=== PATIENT | female | born 1980 | race Caucasian/White ===

== ENCOUNTER → 2016-12-11 | Outpatient (CLI) | payer OTHER | LOC: FIMAGING 08:41 | PROVIDERS: ATTEND Obstetrics & Gynecology | DX: O09.812 Supervision of pregnancy resulting from assisted reproductive technology, second trimester (principal); Z3A.21 21 weeks gestation of pregnancy ==

== ENCOUNTER → 2017-01-06 | Outpatient (CLI) | payer OTHER | LOC: FIMAGING 10:39 | PROVIDERS: ATTEND Obstetrics & Gynecology | DX: O09.512 Supervision of elderly primigravida, second trimester (principal); O09.812 Supervision of pregnancy resulting from assisted reproductive technology, second trimester; Z3A.24 24 weeks gestation of pregnancy; Z82.49 Family history of ischemic heart disease and other diseases of the circulatory system ==

== ENCOUNTER → 2017-03-09 | Outpatient (CLI) | payer OTHER | LOC: FIMAGING 12:23 | PROVIDERS: ATTEND Obstetrics & Gynecology | DX: O09.513 Supervision of elderly primigravida, third trimester (principal); O09.813 Supervision of pregnancy resulting from assisted reproductive technology, third trimester; Z82.49 Family history of ischemic heart disease and other diseases of the circulatory system; Z3A.33 33 weeks gestation of pregnancy ==

== ENCOUNTER 2017-04-28 06:00 | Inpatient (IN) | payer OTHER ==
[2017-04-28] MEDS ORDERED: EPSOM SALT 454 GM TP PRN (07:17)
[2017-04-28] MEDS ORDERED: OXYTOCIN/RINGERS LACTATE 1,000 ML IV PRN (07:17)
[2017-04-28] MEDS ORDERED: OLIVE OIL 118 ML BTL MISC PRN (07:17)
[2017-04-28] MEDS ORDERED: TERBUTALINE SULFATE 1 MG/ML VIAL IV PRN (07:17)
[2017-04-28] MEDS ORDERED: LR 1,000 ML IV PRN (07:17)
[2017-04-28 08:19] LABS: % IMMATURE GRANULYOCYTES 0.6 % (0.0-1.1); ABSOLUTE IMMATURE GRANULOCYTES 0.04 10^3/uL (0.00-0.10); ADD DIFF? NO; ADD MORPH? NO; ADD SCAN? NO; ATYPICAL LYMPHOCYTE FLAG 10 (0-99); FRAGMENT RBC FLAG 0 (0-99); HEMATOCRIT 36.1 % (38.0-47.0); HEMOGLOBIN 13.2 g/dL (12.6-16.3); LEFT SHIFT FLG 0 (0-99); LIPEMIA HEMOLYSIS FLAG 90 (0-99); MEAN CELL HEMOGLOBIN 35.2 pg (27.9-34.1); MEAN CELL HEMOGLOBIN CONCENTR. 36.6 g/dL (32.4-36.7); MEAN CELL VOLUME 96.3 fL (81.5-99.8); MEAN PLATELET VOLUME 10.3 fL (8.7-11.7); PLATELET CLUMPS FLAG 0 (0-99); PLATELET COUNT 156 10^3/uL (150-400); RED BLOOD CELL COUNT 3.75 10^6/uL (4.18-5.33); RED CELL DISTRIBUTION WIDTH 12.5 % (11.5-15.2)
[2017-04-28] MEDS ORDERED: LR 500 ML IV PRN (08:20)
[2017-04-28] MEDS ORDERED: OXYTOCIN/LR *STANDARD DOSE PROTOCOL IV SCH (08:30)
[2017-04-28] MEDS ORDERED: LIDOCAINE 1% 2 ML INJ ONE (08:47)
[2017-04-28] MEDS ORDERED: LIDOCAINE 1% 2 ML INJ ID ONE (09:00)
--- NOTE | 2017-04-28 11:22 | GHP ---
[f rep st] HISTORY AND PHYSICAL DATE OF ADMISSION: 04/28/2017 ADMISSION DIAGNOSIS: Intrauterine at 40 and 5/7 weeks' gestation, here for induction of l abor for postdates. INDICATIONS: Patient is a 36-year-old 2, para 0-0-1-0, who is 40 and 5/7 weeks' gestation, who presents for induction of labor. Patient initially received care at [facility], but then transferred to our practice at 34 weeks' gestation. 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 Patient has a known history of genital HSV. She has be en treated starting at 36 weeks with Valtrex and is not having any prodromal symptoms. The patient' s overall has been uncomplicated with exception of conceiving by IVF. However, her 67-yea r-old mother suddenly earlier this year due to aortic dissection. Patient has been working wit h grief counselors regarding that. She also had an extensive workup with the shell mold bonding machine operator regarding the family history of aortic dissection. MEDICAL HISTORY: Significant for genital HSV, history of ocular migraines, history of depression. She was on medication, Celexa, but discontinued that 5 years ago. Gluten sensitivity. History of s inus cyst. MEDICATIONS: vitamins, iron, and Valtrex. SURGICAL HISTORY: Removal of sinus cyst, varicose veins, procedures related to egg retrieval and IV F. ALLERGIES: No known drug allergies. SOCIAL HISTORY: Patient is . 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 She denies tobacco, alcohol, or dr ug use. FAMILY MEDICAL HISTORY: Her mother of aortic artery dissection in October of this year. The pat ient has had a negative cardiac and major blood vessel workup. Remainder of medical history is nonc ontributory. 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 Periods every 28 days, lasting 5-7 days. She is a 2, para 0-0-1-0. In 11/2014, she had a chemical . Current was conceived by IVF. S he had transfer of a day-5 embryo. She had a negative echocardiogram in this . The has overall been uncomplicated. The patient does have a history of low risk HPV but no hi story of abnormal Pap. She does have a history of genital herpes and HPV. REVIEW OF SYSTEMS: A 10-point review of systems is negative with the above-mentioned pertinent posi tives noted. She denies any headache, changes in vision, nausea, vomiting. There is good mov ement. Denies any loss of fluid or vaginal bleeding. PHYSICAL EXAM: VITAL SIGNS: Stable. GENERAL APPEARANCE: Alert and oriented x3. PSYCH: She has appropriate affect. NECK: Mobile and supple. HEART: Rate is regular, regular. LUNGS: Clear to auscultation bilaterally. ABDOMEN: Gravid, nondistended, nontender. EXTREMITIES: No calf tendern ess or edema. PELVIC: On her last cervical exam, she was 3 cm dilated, 100% effaced, -2 station. There are no signs of HSV lesions. heart tracing is category 1, and she is having occasional contractions. LABS: Blood type B positive, antibody screen negative. Rubella immune. GBS negative. HB sAg negative. HIV negative. Her 50 g glucose was 101. She had a negative Verifi screen. ASSESSMENT AND PLAN: A 36-year-old 2, para 0-0-1-0 who is 40 and 5/7 weeks' gestation, here for induction of labor for postdates. She has been started on Pitocin. She is requesting epidural when she becomes more active, and she will be managed expectantly. /[id number]/MODL
[2017-04-28] MEDS ORDERED: fentaNYL 2MCG/ML/BUP 0.1% RTU 100 ML BAG EP ONE (13:18)
[2017-04-28] MEDS ORDERED: BUPIVACAINE 0.25% 30 ML SDV ONE (13:19)
[2017-04-28] MEDS ORDERED: PHENYLEPHRINE HCL 100 MCG/ML SYR ONE (13:19)
[2017-04-28] MEDS ORDERED: PHENYLEPHRINE HCL 100 MCG/ML SYR IVP PRN (13:45)
[2017-04-28] MEDS ORDERED: NALOXONE HCL 0.4 MG/ML INJ IVP PRN (13:45)
[2017-04-28] MEDS ORDERED: METOCLOPRAMIDE 10 MG/2 ML VIAL IVP PRN (13:45)
[2017-04-28] MEDS ORDERED: ONDANSETRON 4 MG/2 ML VIAL IVP PRN (13:45)
[2017-04-28] MEDS ORDERED: fentaNYL 2MCG/ML/BUP 0.1% RTU 100 ML EP SCH (14:00)
[2017-04-28] MEDS ORDERED: LR 500 ML IV SCH (14:00)
--- NOTE | 2017-04-28 14:03 | OBPROG ---
Labor Progress Note Assessment/Plan: Assessment: Plan: - . Subjective/Intrapartum Course: 04/28/17 14:01 patient comfortable with epidural. pitocin is at 12. AROM - moderate amount of blood tinged clear fluid. status is reassuring. 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 negative genetic testing. negative echocardiogram. initial care with [facility] [place]. transferred to [facility] at 36 weeks. - Physical Exam General Appearance: WD/WN, alert, no apparent distress Respiratory: chest non-tender, lungs clear, normal breath sounds Cardiac/Chest: normal peripheral pulses, regular rate, rhythm Abdomen: normal bowel sounds, hypoactive bowel sounds, other (fundus firm ) Extremities: normal range of motion, non-tender, normal inspection, normal capillary refill Skin: normal color, warm/dry Neuro/Psych: no motor/sensory deficits, alert, normal mood/affect, oriented x 3 Oxytocin Orders Assessment - Pre-Induction/Augmentation Assessment Gestational Age: 40 week(s) and 5 day(s) ICD10 Worksheet Patient Problems: Problems Problem Status Onset First stage of labor Acute
[2017-04-28] MEDS ORDERED: OLIVE OIL 118 ML BTL ONE (14:26)
[2017-04-28] MEDS ORDERED: LIDOCAINE 1% 300 MG/30 ML SDV ONE ×2 (14:26→23:11)
[2017-04-28] MEDS ORDERED: AMMONIA AROMATIC 1 EACH AMP IH ONE (14:27)
[2017-04-28] MEDS ORDERED: MISOPROSTOL 200 MCG TAB ONE (14:27)
[2017-04-28] MEDS ORDERED: OXYTOCIN 10 UNIT/ML VIAL ONE ×2 (14:27→23:12)
[2017-04-28] MEDS ORDERED: TERBUTALINE SULFATE 1 MG/ML VIAL ONE (14:27)
[2017-04-28] MEDS ORDERED: OXYTOCIN 20 UNIT in LR 1,000 ML IV SCH (14:30)
--- NOTE | 2017-04-28 17:14 | OBPROG ---
Labor Progress Note Assessment/Plan: Assessment: 36 yo at 40 4/7 weeks arom- iupc for minimal cervical change Plan: monitor mvu and increase pitocin to max 24 04/28/17 17:12 - . Subjective/Intrapartum Course: 04/28/17 14:01 patient comfortable with epidural. pitocin is at 12. AROM - moderate amount of blood tinged clear fluid. status is reassuring. 04/28/17 17:13 patient is doing well. pitocin is at 18 mu. sve 4/80/-2. IUPC placed. contractions are not adequate yet. will increase pitocin to max 24. status reassuring. 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 negative genetic testing. negative echocardiogram. initial care with [facility] [place]. transferred to [facility] at 36 weeks. Oxytocin Orders Assessment - Pre-Induction/Augmentation Assessment Gestational Age: 40 week(s) and 5 day(s) ICD10 Worksheet Patient Problems: Problems Problem Status Onset First stage of labor Acute
[2017-04-28] MEDS: CALCIUM CARBONATE 500 MG CHEWABLE TAB PO PRN (17:45)
--- NOTE | 2017-04-28 19:04 | OBPROG ---
Labor Progress Note Assessment/Plan: Assessment: 36 yo at 40 4/7 weeks arom- iupc for minimal cervical change Plan: monitor mvu and increase pitocin to max 24 04/28/17 17:12 - . Subjective/Intrapartum Course: 04/28/17 14:01 patient comfortable with epidural. pitocin is at 12. AROM - moderate amount of blood tinged clear fluid. status is reassuring. 04/28/17 17:13 patient is doing well. pitocin is at 18 mu. sve 4/80/-2. IUPC placed. contractions are not adequate yet. will increase pitocin to max 24. status reassuring. 04/28/17 19:03 patient comfortable. pitocin is at 20 mu. sve 5/80/-2. 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 negative genetic testing. negative echocardiogram. initial care with [facility]. transferred to [facility] at 36 weeks. Oxytocin Orders Assessment - Pre-Induction/Augmentation Assessment Gestational Age: 40 week(s) and 5 day(s) ICD10 Worksheet Patient Problems: Problems Problem Status Onset First stage of labor Acute
--- NOTE | 2017-04-28 21:13 | OBPROG ---
Labor Progress Note Assessment/Plan: Assessment: 36 yo at 40 4/7 weeks arom- iupc for minimal cervical change Plan: monitor mvu and increase pitocin to max 24 04/28/17 17:12 - . Subjective/Intrapartum Course: 04/28/17 14:01 patient comfortable with epidural. pitocin is at 12. AROM - moderate amount of blood tinged clear fluid. status is reassuring. 04/28/17 17:13 patient is doing well. pitocin is at 18 mu. sve 4/80/-2. IUPC placed. contractions are not adequate yet. will increase pitocin to max 24. status reassuring. 04/28/17 19:03 patient comfortable. pitocin is at 20 mu. sve 5/80/-2. contractions were adequate but are not currently so will increase pitocin 04/28/17 21:11 patient feeling much more rectal pressure. SVE - complete/0. pitocin at 20 mu. began pushing. 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 negative genetic testing. negative echocardiogram. initial care with [facility] [place]. transferred to [facility] at 36 weeks. Oxytocin Orders Assessment - Pre-Induction/Augmentation Assessment Gestational Age: 40 week(s) and 5 day(s) ICD10 Worksheet Patient Problems: Problems Problem Status Onset First stage of labor Acute
--- NOTE | 2017-04-28 22:19 | OBPROG ---
Labor Progress Note Assessment/Plan: Assessment: 36 yo at 40 4/7 weeks arom- iupc complete and pushing Plan: pushing 04/28/17 22:17 - . Subjective/Intrapartum Course: 04/28/17 14:01 patient comfortable with epidural. pitocin is at 12. AROM - moderate amount of blood tinged clear fluid. status is reassuring. 04/28/17 17:13 patient is doing well. pitocin is at 18 mu. sve 4/80/-2. IUPC placed. contractions are not adequate yet. will increase pitocin to max 24. status reassuring. 04/28/17 22:18 patient has been pushing in multiple position. not moving the baby much. overall status is reassuring. having variable with pushing but moderate variability in between. 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 negative genetic testing. negative echocardiogram. [place] [facility] [place] to [facility] at 36 weeks. Oxytocin Orders Assessment - Pre-Induction/Augmentation Assessment Gestational Age: 40 week(s) and 5 day(s) ICD10 Worksheet Patient Problems: Problems Problem Status Onset First stage of labor Acute
[2017-04-28] MEDS ORDERED: fentaNYL 100 MCG/2 ML INJ ONE (23:05)
[2017-04-28] MEDS ORDERED: HEMABATE 250 MCG/1 ML AMP IM ONE (23:13)
[2017-04-28] MEDS ORDERED: METHYLERGONOVINE MAL 0.2 MG/ML INJ ONE (23:15)
[2017-04-28] MEDS ORDERED: LR 500 ML IV ONE (23:17)
[2017-04-28] MEDS ORDERED: ceFAZolin 2 GM/DEXTROSE 100 ML IV ONE (23:17)
--- NOTE | 2017-04-28 23:18 | OBPROG ---
Labor Progress Note Assessment/Plan: Assessment: 36 yo at 40 4/7 weeks arom- iupc complete and pushing Plan: pushing 04/28/17 22:17 - . Subjective/Intrapartum Course: 04/28/17 14:01 patient comfortable with epidural. pitocin is at 12. AROM - moderate amount of blood tinged clear fluid. status is reassuring. 04/28/17 17:13 patient is doing well. pitocin is at 18 mu. sve 4/80/-2. IUPC placed. contractions are not adequate yet. will increase pitocin to max 24. status reassuring. 04/28/17 22:18 patient has been pushing in multiple position. not moving the baby much. overall status is reassuring. having variable with pushing but moderate variability in between. 04/28/17 23:13 patient has been pushing for greater than two hours with minimal descent of the head. patient is not longer able to push for more than a few seconds at a time due to severe pain in suprapubic area. has pushed bolus several times with no relief. epidural assessed and found to be disconnected. not able to simply reconnect due to sterility. RT notified and nitrous brought to patient. pitocin off. patient given terbutaline. discussion about management options of replacing epidural and then once comfortable beginning pushing. patient does not want to do that. "I want a c section". discussed risks, benefits. because even when patient was comfortable and exerting good pushing effort the head was not descending at all we agreed to proceed with PLTCS. consent obtained. 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 negative genetic testing. negative echocardiogram. initial care with [facility]. transferred to [facility] at 36 weeks. Oxytocin Orders Assessment - Pre-Induction/Augmentation Assessment Gestational Age: 40 week(s) and 5 day(s) ICD10 Worksheet Patient Problems: Problems Problem Status Onset First stage of labor Acute
[2017-04-28] MEDS ORDERED: LR 1,000 ML IV SCH (23:30)
[2017-04-29] MEDS ORDERED: epHEDrine SULFATE 10 MG/ML SYR ONE ×2 (00:27)
[2017-04-29] MEDS ORDERED: PHENYLEPHRINE HCL 100 MCG/ML SYR ONE (00:27)
[2017-04-29] MEDS ORDERED: GLYCOPYRROLATE 0.2 MG/1 ML VIAL ONE (00:27)
[2017-04-29] MEDS ORDERED: PHENYLEPHRINE 10 MG/ML SDV ONE (00:28)
[2017-04-29] MEDS ORDERED: OXYTOCIN 100 UNITS/10 ML VIAL ONE (00:28)
[2017-04-29] MEDS ORDERED: MEPERIDINE 25 MG/ML SYR ONE (00:34)
[2017-04-29] MEDS ORDERED: SIMETHICONE 80 MG TAB CHEW PO PRN (00:45)
[2017-04-29] MEDS ORDERED: BISACODYL 10 MG SUPP PR PRN (00:45)
[2017-04-29] MEDS ORDERED: MAGNESIUM HYDROXIDE 30 ML UDCUP PO PRN (00:45)
[2017-04-29] MEDS ORDERED: POLYETHYLENE GLYCOL 3350 17 GM PKT PO PRN (00:45)
[2017-04-29] MEDS ORDERED: ACETAMINOPHEN 325 MG TAB PO PRN (00:45)
[2017-04-29] MEDS ORDERED: DOCUSATE SODIUM 100 MG CAP PO PRN (00:45)
[2017-04-29] MEDS ORDERED: LACTULOSE 20 GM/30 ML UDCUP PO PRN (00:45)
--- NOTE | 2017-04-29 00:50 | OBDEL ---
Info Type: Primary Presentation at Delivery: Vertex (occiput posterior) L&D Analgesia/Anesthesia Type: Epidural, Spinal, Nitrous GBS+: No Intrapartum Medications: Generic Name Dose Route Start Last Admin Trade Name Freq PRN Reason Stop Dose Admin Calcium Carbonate 500 - 1,000 mg 04/28/17 16:51 04/28/17 17:45 Tums PO 10/25/17 16:50 1,000 mg Q4H PRN Administration INDIGESTION Lactated Ringer's 1,000 mls @ 0 mls/hr 04/28/17 07:17 04/28/17 09:10 Lr IV 10/25/17 07:16 1,000 mls PRN PRN Administration SEE PROTOCOL CONDITIONS Protocol Per Protocol Oxytocin 30 unit/ Lactated 503 mls @ 0 mls/hr 04/28/17 08:30 04/28/17 09:10 Ringer's IV 10/25/17 08:29 503 mls CONT BOWEN Administration Protocol Per Protocol Discontinued Medications Generic Name Dose Route Start Last Admin Trade Name Freq PRN Reason Stop Dose Admin Lidocaine HCl 2 ml 04/28/17 09:00 04/28/17 09:00 Lidocaine Hcl 1% ID 04/28/17 09:01 2 ml ONCE ONE Administration methergine given intraoperatively for pp atony - Hospital Course Intrapartum: 04/28/17 14:01 patient comfortable with epidural. pitocin is at 12. AROM - moderate amount of blood tinged clear fluid. status is reassuring. 04/28/17 17:13 patient is doing well. pitocin is at 18 mu. sve 4/80/-2. IUPC placed. contractions are not adequate yet. will increase pitocin to max 24. status reassuring. 04/28/17 22:18 patient has been pushing in multiple position. not moving the baby much. overall status is reassuring. having variable with pushing but moderate variability in between. 04/28/17 23:13 patient has been pushing for greater than two hours with minimal descent of the head. patient is not longer able to push for more than a few seconds at a time due to severe pain in suprapubic area. has pushed bolus several times with no relief. epidural assessed and found to be disconnected. not able to simply reconnect due to sterility. RT notified and nitrous brought to patient. pitocin off. patient given terbutaline. discussion about management options of replacing epidural and then once comfortable beginning pushing. patient does not want to do that. "I want a c section". discussed risks, benefits. because even when patient was comfortable and exerting good pushing effort the head was not descending at all we agreed to proceed with PLTCS. consent obtained. Indications for Delivery: Elective Vaginal Delivery - Labor and Delivery Onset of Contractions Date: 04/28/17 Onset of Contractions Time: 09:46 Amniotic Fluid Color: Clear, Bloody Non-surgical Procedures: Amniotomy Operative Report - Delivery Pre-op Diagnoses: iup 40 5/7 weeks, arrest of descent, inadequate pain managment patient requesting c section and declines replacement of epidural Post-op Diagnoses: same plus occiput posterior and nuchal cord History of Prior Section: No Nulliparous Prior to Delivery: Yes Indications for Current Section: Arrest of Descent Procedure: Unscheduled, Low Transverse Surgeon: Estrella Alvarenga Anthropology Lecturer: Negin Suresh Anesthesiologist: Lisa Starks Complications: None EBL: [address] Delivery Date: 04/29/17 Delivery Time: 00:03 OBED: 04/23/17 Gestational Age: 40 week(s) and 6 day(s) Sex of Infant: Female Score (1 Min): 8 Score (5 Min): 9 ICD10 Worksheet Patient Problems: Problems Problem Status Onset First stage of labor Acute
--- NOTE | 2017-04-29 00:55 | PREANESOB ---
Obstetric Pre-Anesthesia Info - General Info Proposed Procedure: C section : 1 Para: 0 - Info Status: Full Term FHR Pattern: Reassuring - Labor Status Cervical Dilation per last OB SVE: 2, 10 Station per last OB SVE: 0 Pitocin: In Use (Severe labor pain Epidural tubing contaminated. Plan dc epidural place spinal. C section) Indications for Current Section: Arrest of Descent Anesthesia Allergies/Adverse Reactions: Allergy/AdvReac Type Severity Reaction Status Date / Time No Known Allergies Allergy Unverified 04/28/17 07:16 Visit Medications: Generic Name Dose Route Start Last Admin Trade Name Freq PRN Reason Stop Dose Admin Acetaminophen 325 - 650 mg 04/29/17 00:45 Tylenol PO 10/26/17 00:44 Q3HRS PRN Pain, Mild Hydrocodone Bitart/Acetaminophen 1 - 2 tab 04/29/17 00:45 [place] 5/325 PO 05/09/17 00:44 Q4HRS PRN Pain, Moderate Bisacodyl 10 mg 04/29/17 00:45 Dulcolax Rectal [place] 10/26/17 00:44 DAILY PRN Constipation Protocol Calcium Carbonate 500 - 1,000 mg 04/28/17 16:51 04/28/17 17:45 Tums PO 10/25/17 16:50 1,000 mg Q4H PRN Administration INDIGESTION Diphenhydramine HCl 25 - 50 mg 04/28/17 13:45 Benadryl Injection IVP 10/25/17 13:44 Q6HRS PRN Itching Docusate Sodium 100 mg 04/29/17 00:45 Colace PO 10/26/17 00:44 BID PRN Constipation Lactated Ringer's 1,000 mls @ 0 mls/hr 04/28/17 07:17 04/28/17 09:10 Lr IV 10/25/17 07:16 1,000 mls PRN PRN Administration SEE PROTOCOL CONDITIONS Protocol Per Protocol Lactated Ringer's 500 mls @ 500 mls/hr 04/28/17 08:20 Lr IV PRN PRN Maternal Hypotension Oxytocin 30 unit/ Lactated 503 mls @ 0 mls/hr 04/28/17 08:30 04/28/17 09:10 Ringer's IV 10/25/17 08:29 503 mls CONT BOWEN Administration Protocol Per Protocol Fentanyl/Bupivacaine HCl 100 mls @ 0 mls/hr 04/28/17 14:00 Fentanyl/Bupivacaine/Ns 2 Mcg/Ml 0.1% (Premix EP 05/08/17 13:59 CONT BOWEN Protocol As Directed Lactated Ringer's 500 mls @ 0 mls/hr 04/28/17 14:00 Lr IV 10/25/17 13:59 CONT BOWEN As Directed Lactated Ringer's 1,000 mls @ 125 mls/hr 04/28/17 23:30 Lr IV 10/25/17 23:29 CONT BOWEN Oxytocin 20 unit/ Lactated 1,002 mls @ 125 mls/hr 04/29/17 01:00 Ringer's IV 10/26/17 00:59 CONT [facility] Ibuprofen 600 mg 04/28/17 07:17 Motrin PO 10/25/17 07:16 Q6HRS PRN post , inflammation Ketorolac Tromethamine 30 mg 04/29/17 06:00 Toradol IVP 04/30/17 00:01 Q6HRS [facility] Lactulose 20 gm 04/29/17 00:45 Cephulac PO 10/26/17 00:44 TID PRN Constipation Protocol Magnesium Hydroxide 30 ml 04/29/17 00:45 Milk Of Magnesia PO 10/26/17 00:44 DAILY PRN Constipation Protocol Magnesium Sulfate 454 gm 04/28/17 07:17 Epsom Salt TP 10/25/17 07:16 Q1H PRN perineal discomfort Metoclopramide HCl 20 mg 04/28/17 13:45 Reglan Injection IVP 10/25/17 13:44 Q6HRS PRN Nausea/Vomiting, Can't Take PO Naloxone HCl 0.4 mg 04/28/17 13:45 Narcan IVP 10/25/17 13:44 PRN PRN Respiratory depression [place] Oil 118 ml 04/28/17 07:17 Sweet Oil MISC 10/25/17 07:16 ONCE PRN perineal massage Ondansetron HCl 4 mg 04/28/17 13:45 Zofran IVP 10/25/17 13:44 Q4HRS PRN Nausea/Vomiting, Can't Take PO Phenylephrine HCl 100 mcg 04/28/17 13:45 Neosynephrine IVP 10/25/17 13:44 .Q2M PRN Hypotension Polyethylene Glycol 17 gm 04/29/17 00:45 Miralax PO 10/26/17 00:44 DAILY PRN Constipation, patient prefers Protocol Senna/Docusate Sodium 1 - 2 tab 04/29/17 09:00 Senokot-S PO 10/26/17 08:59 BID [facility] Protocol Simethicone 80 mg 04/29/17 00:45 Mylicon PO 10/26/17 00:44 .TIDMEALS AND HS PRN Gas Terbutaline Sulfate 0.25 mg 04/28/17 07:17 Brethine IV 10/25/17 07:16 ONCE PRN Tachysystole Discontinued Medications Generic Name Dose Route Start Last Admin Trade Name Freq PRN Reason Stop Dose Admin Ammonia (Aromatic Spirit) Confirm 04/28/17 14:27 Ammonia Aromatic Administered 04/28/17 14:28 Dose 1 each IH .STK-MED ONE Bupivacaine HCl Confirm 04/28/17 13:19 Sensorcaine 0.25% Sdv Administered 04/28/17 13:20 Dose 30 ml .ROUTE .STK-MED ONE Carboprost Tromethamine Confirm 04/28/17 23:13 Hemabate Administered 04/28/17 23:14 Dose 250 mcg IM .STK-MED ONE Ephedrine Sulfate Confirm 04/28/17 14:27 Ephedrine Sulfate Administered 04/28/17 14:28 Dose 50 mg .ROUTE .STK-MED ONE Ephedrine Sulfate Confirm 04/29/17 00:27 Ephedrine Sulfate Administered 04/29/17 00:28 Dose 10 mg .ROUTE .STK-MED ONE Ephedrine Sulfate Confirm 04/29/17 00:27 Ephedrine Sulfate Administered 04/29/17 00:28 Dose 10 mg .ROUTE .STK-MED ONE Fentanyl Confirm 04/28/17 23:05 Sublimaze Administered 04/28/17 23:06 Dose 100 mcg .ROUTE .STK-MED ONE Fentanyl/Bupivacaine HCl Confirm 04/28/17 13:18 Fentanyl/Bupivacaine/Ns 2 Mcg/Ml 0.1% (Premix Administered 04/28/17 13:19 Dose 100 ml EP .STK-MED ONE Glycopyrrolate Confirm 04/29/17 00:27 Glycopyrrolate Administered 04/29/17 00:28 Dose 0.2 mg .ROUTE .STK-MED ONE Oxytocin/Lactated Ringer's 1,000 mls @ 150 mls/hr 04/28/17 07:17 Pitocin 20 Units/Lr (Premix) IV PRN PRN Post- bleeding Oxytocin 20 unit/ Lactated 1,002 mls @ 150 mls/hr 04/28/17 14:30 Ringer's IV 04/28/17 21:11 CONT BOWEN Cefazolin Sodium/Dextrose 100 mls @ 200 mls/hr 04/28/17 23:17 Ancef 2 Gm (Premix) IV 04/28/17 23:46 ONCALL ONE Protocol Lactated Ringer's 500 mls @ 0 mls/hr 04/28/17 23:17 Lr IV 04/28/17 23:18 ONCE ONE As Directed Lidocaine HCl Confirm 04/28/17 08:47 Lidocaine Hcl 1% Administered 04/28/17 08:48 Dose 2 ml .ROUTE .STK-MED ONE Lidocaine HCl 2 ml 04/28/17 09:00 04/28/17 09:00 Lidocaine Hcl 1% ID 04/28/17 09:01 2 ml ONCE ONE Administration Lidocaine HCl Confirm 04/28/17 14:26 Lidocaine Hcl 1% Administered 04/28/17 14:27 Dose 300 mg .ROUTE .STK-MED ONE Lidocaine HCl Confirm 04/28/17 23:11 Lidocaine Hcl 1% Administered 04/28/17 23:12 Dose 300 mg .ROUTE .STK-MED ONE Meperidine HCl Confirm 04/29/17 00:34 Demerol 25 Mg/Ml Syringe Administered 04/29/17 00:35 Dose 25 mg .ROUTE .STK-MED ONE Methylergonovine Maleate Confirm 04/28/17 23:15 Methergine Administered 04/28/17 23:16 Dose 0.2 mg .ROUTE .STK-MED ONE Misoprostol Confirm 04/28/17 14:27 Cytotec Administered 04/28/17 14:28 Dose 1,000 mcg .ROUTE .STK-MED ONE Morphine Sulfate Confirm 04/28/17 23:06 Morphine Administered 04/28/17 23:07 Dose 2 mg .ROUTE .STK-MED ONE [place] Confirm 04/28/17 14:26 Sweet Oil Administered 04/28/17 14:27 Dose 118 ml .ROUTE .STK-MED ONE Oxytocin Confirm 04/28/17 14:27 Pitocin Administered 04/28/17 14:28 Dose 40 unit .ROUTE .STK-MED ONE Oxytocin Confirm 04/28/17 23:12 Pitocin Administered 04/28/17 23:13 Dose 40 unit .ROUTE .STK-MED ONE Oxytocin Confirm 04/29/17 00:28 Pitocin Administered 04/29/17 00:29 Dose 100 units .ROUTE .STK-MED ONE Phenylephrine HCl Confirm 04/28/17 13:19 Neosynephrine Administered 04/28/17 13:20 Dose 1,000 mcg .ROUTE .STK-MED ONE Phenylephrine HCl Confirm 04/29/17 00:27 Neosynephrine Administered 04/29/17 00:28 Dose 1,000 mcg .ROUTE .STK-MED ONE Phenylephrine HCl Confirm 04/29/17 00:28 Neosynephrine Administered 04/29/17 00:29 Dose 10 mg .ROUTE .STK-MED ONE Terbutaline Sulfate Confirm 04/28/17 14:27 Brethine Administered 04/28/17 14:28 Dose 1 mg .ROUTE .STK-MED ONE - Focused Exam Height/Weight (Nursing): Height 165.1 cm Weight 72.575 kg Labs: 04/28/17 07:45 Patient ABO/Rh A POSITIVE 04/28/17 07:45
[2017-04-29] MEDS ORDERED: OXYTOCIN 20 UNIT in LR 1,000 ML IV SCH (01:00)
[2017-04-29] MEDS ORDERED: KETOROLAC 30 MG/1 ML SDV ONE (02:08)
--- NOTE | 2017-04-29 07:39 | GOP ---
[f rep st] OPERATIVE REPORT DATE OF OPERATION: 04/29/2017 SURGEON: Estrella Alvarenga DO COPY HOLDER: CHRISTINE Johnson. ANESTHESIA: Spinal with morphine. ANESTHESIOLOGIST: Lisa Starks. PREOPERATIVE DIAGNOSIS: 1. Intrauterine at 40 and 5/7 weeks' gestation. 2. Arrest of descent. 3. Inadequate pain control after epidural came out. Patient refused replacement of the epidural and is requesting a primary section. POSTOPERATIVE DIAGNOSIS: 1. Intrauterine at 40 and 5/7 weeks' gestation. 2. Arrest of descent. 3. Inadequate pain control after epidural came out. Patient refused replacement of the epidural and is requesting a primary section. 4. Occiput posterior, nuchal cord x1. PROCEDURE PERFORMED: FINDINGS: 1. Viable female infant in a straight occiput posterior presentation with the head easily removed fr om the pelvis. 's were 8 and 9. 2. Intact placenta with 3-vessel cord. 3. Normal ovaries, uterus and tubes. Mild atony which was resolved with Methergine x1, a nd Pitocin. ESTIMATED BLOOD LOSS: 900 cc. 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 She was 40 and 5/7 weeks' gestation. She presented for elective karissa ction of labor. The patient was 3-4 cm dilated, 80% effaced and -2 station on arrival. She was star carmelo on Pitocin. She requested and did receive an epidural which provided adequate pain relief. A Fo gabrielle catheter was then placed and membranes were ruptured. The patient initially made slow progress f rom 4-5 cm. An intrauterine pressure catheter was then placed and Pitocin was then increased until c ontractions were adequate. The patient then rapidly progressed to complete dilation. Patient progre ssed to complete. Overall status was reassuring and patient began pushing due to significant p elvic pressure. She pushed on and off for 2 hours with minimal to no descent of the head. At some point during the pushing process, her epidural became dislodged and replacing a would have been unsterile. The patient was having panic attacks and significant anxiety. We had a long discussion a bout management options after she was given nitrous oxide and Fentanyl, and patient was offered to [place] ve a repeat placement of the epidural and then continue pushing. Because patient had not made any de scent of the head with pushing after 2 hours, decision was made to proceed with a primary low t ransverse section. Risks and benefits extensively reviewed with the patient and patient was properly consented. DESCRIPTION OF PROCEDURE: Patient was taken to the operating room with intravenous fluids in place. She was given 2 g of Ancef and placed on the operating room table where spinal anesthesia was obtain ed. A Yancey catheter was then already in place. Venodyne were placed on her lower extremities and s he was then prepped and draped in a normal sterile fashion. Anesthesia was assessed and found to be adequate. A Pfannenstiel skin incision was then made 2 fingerbreadths above the pubic symphysis. Th e incision was then carried through to the underlying layer of fascia with the Bovie. The fascia was then nicked in the midline, and fascial incision was extended laterally. The superior aspect of the fascial incision was then grasped with the Mauricio's, tented up, and the underlying rectus muscle dis sected off bluntly with the Bovie. Attention was then turned to the inferior aspect of the fascial i ncision, which in a similar fashion was grasped with Mauricio's, tented up, and the underlying rectus m uscle dissected off bluntly with the Bovie. The rectus muscle was then in the midline. Th e peritoneum was then identified, tented up, and entered sharply with the Metzenbaum scissors. The i ncision was extended superiorly and inferiorly with excellent visualization of the bladder. The blad mallory blade was then inserted. The vesicouterine peritoneum was identified, tented up, and entered sha rply with the Metzenbaum scissors. The incision was extended laterally and a bladder flap was create d digitally. The bladder blade was then inserted. The uterus was then incised in low transverse fas hion with the scalpel. The uterine incision was extended laterally. The 's head was noted to be within the pelvis however, it was easily dislodged and there was no caput noted on the infant's he ad, except for 1 small area on the baby's forehead. The occiput posterior head was delivered through the incision. Nuchal cord x1 was reduced and the was then delivered without difficulty. Del ayed cord clamping for 30 seconds was done. Cord was then clamped x2 and cut. Cord blood for stor e and cord blood for the hospital were then collected and the infant was handed off to awaiting neona tavia nurse practitioner. The placenta was then delivered. The uterus was then exteriorized and clear ed of all clots and debris. Pitocin was then started. The uterus was wrapped in a moist laparotomy sponge. A small amount of atony was noted. Patient was given 0.2 mg of Methergine intram uscularly and tone significantly increased in the uterus. The bladder blade was then reinserted. Th e hysterotomy was closed with 0 Vicryl in a running locked fashion. A 2nd 0 Vicryl stitch was used t o imbricate the uterine incision. The hysterotomy remained unremarkable. Ovaries uterus and tubes w ere unremarkable. The abdomen was then cleared of all clots. The uterus was then returned to the pa tient's abdomen, and hysterotomy remained hemostatic. Peritoneum was reapproximated with 3-0 Vicryl in a running fashion. Rectus muscle was reapproximated with 2-0 Vicryl in a running fashion. Fascia was closed with 0 Vicryl in a running fashion. Haseeb's tissue was reapproximated with 3-0 Vicryl i n a running fashion. Subcuticular tissue was closed with 3-0 Vicryl in a running fashion and the ski n was then closed with cristofer. Sponge, lap, and needle count were correct x2. Patient was transpor carmelo to recovery room in stable condition. /[id number]/MODL
[2017-04-29] MEDS: KETOROLAC 30 MG/1 ML SDV IVP SCH ×3 (08:40→20:55)
[2017-04-29] MEDS: SENNOSIDES/DOCUSATE SODIUM TAB PO SCH ×2 (13:58→20:55)
[2017-04-29] MEDS: HYDROCODONE/APAP 5/325 TAB PO PRN ×2 (13:58→18:22)
--- NOTE | 2017-04-29 14:14 | OBPP ---
Progress Note Assessment/Plan: Assessment: Post Op Day #1 s/p primary C/S for arrest of descent Plan: routine post op care ambulation once able increase water intake cont plan d/c in approx 72 hours 04/29/17 14:11 Subjective/ Course: 04/29/17 14:12 Pt doing well, reports moderate cramps reports fatigue denies any heavy bleeding denies any CP/SOB Objective: 04/28/17 07:45 Patient ABO/Rh A POSITIVE 04/28/17 07:45 Temp Pulse Resp BP Pulse Ox 36.7 C 71 14 111/66 94 04/29/17 07:30 04/29/17 12:30 04/29/17 12:30 04/29/17 07:30 04/29/17 12:30 Exam: CV: RRR No murmur Resp: CTA-B Abd: soft, nontender, +BSX4, incision C/D/I Uterus: firm @U Lochia: min rubra Extremities: trace edema, negative joseline's Uterine Position/Fundal Height: At Umbilicus, Midline Uterine Tone: Firm
[2017-04-30] MEDS: HYDROCODONE/APAP 5/325 TAB PO PRN ×5 (01:53→22:24)
[2017-04-30] MEDS: IBUPROFEN 600 MG TAB PO PRN ×3 (05:45→19:30)
[2017-04-30] MEDS: KETOROLAC 30 MG/1 ML SDV IVP SCH (06:40)
[2017-04-30] MEDS: SENNOSIDES/DOCUSATE SODIUM TAB PO SCH ×2 (08:53→19:30)
[2017-04-30 15:28] VITALS: RESP 16
--- NOTE | 2017-04-30 15:30 | OBPP ---
Progress Note Assessment/Plan: Assessment: 36 y/o POD #1.5 s/p LTCS secondary to arrest of descent. Plan: Pt may shower, ambulate with assistance. support and routine POC. 04/30/17 15:29 Subjective/ Course: 04/29/17 14:12 Pt is doing well this am. She is ambulating and voiding and has min lochia. Pain is well controlled with po [place] and Ibuprofen. She is working on breast feeding and baby is doing well. She is on Colace and bowel protocol. 04/30/17 15:26 Objective: 04/30/17 05:55 Patient ABO/Rh A POSITIVE 04/28/17 07:45 Temp Pulse Resp BP Pulse Ox 36.8 C 85 18 102/75 96 04/30/17 00:42 04/30/17 00:42 04/30/17 00:42 04/30/17 00:42 04/30/17 00:42 Uterine Position/Fundal Height: Umbilicus -2 Uterine Tone: Firm
[2017-04-30] MEDS: IRON POLYSAC/IRON HEME 28 MG TAB PO SCH (17:04)
[2017-05-01] MEDS: IBUPROFEN 600 MG TAB PO PRN ×4 (02:16→22:33)
[2017-05-01] MEDS: HYDROCODONE/APAP 5/325 TAB PO PRN ×2 (02:17→06:46)
[2017-05-01] MEDS: CALCIUM CARBONATE 500 MG CHEWABLE TAB PO PRN (02:21)
[2017-05-01] MEDS: SENNOSIDES/DOCUSATE SODIUM TAB PO SCH ×2 (10:06→22:33)
[2017-05-01] MEDS: IRON POLYSAC/IRON HEME 28 MG TAB PO SCH (10:06)
--- NOTE | 2017-05-01 10:56 | POSTANESTH ---
Post Anesthetic Evaluation Cardiovascular Status: Normal, Stable Respiratory Status: Normal, Stable Level of Consciousness/Mental Status: Can Participate in Eval Pain Control: Adequate, Prn Tx Ordered Nausea/Vomiting Control: Adequate, Prn Tx Ordered Complications Possibly Related to Anesthesia: None Noted (Doing well No KENDALL)
[2017-05-01 11:47] VITALS: O2SAT 95
--- NOTE | 2017-05-01 18:33 | OBPP ---
Progress Note Assessment/Plan: Assessment: 36 yo at 40 4/7 weeks arom- iupc complete and pushing Plan: pushing 04/28/17 22:17 Subjective/ Course: 04/29/17 14:12 Pt is doing well this am. She is ambulating and voiding and has min lochia. Pain is well controlled with po [place] and Ibuprofen. She is working on breast feeding and baby is doing well. She is on Colace and bowel protocol. 04/30/17 15:26 05/01/17 18:30 patient is doing well. pain is well controlled working on breast feeding. normal lochia. long discussion about labor course and delivery. multiple questions answered. Objective: 04/30/17 05:55 Patient ABO/Rh A POSITIVE 04/28/17 07:45 Temp Pulse Resp BP Pulse Ox 36.5 C 78 16 115/78 95 05/01/17 11:46 05/01/17 11:46 05/01/17 11:46 05/01/17 11:46 05/01/17 11:46 Uterine Position/Fundal Height: Umbilicus -2 Physical Exam - Physical Exam Neck: non-tender, full range of motion Respiratory: chest non-tender, lungs clear, normal breath sounds Cardiac/Chest: normal peripheral pulses, regular rate, rhythm Abdomen: normal bowel sounds, non-tender Extremities: normal range of motion, non-tender, normal inspection, normal capillary refill Skin: normal color, warm/dry, other (incision clean dry and intact) Neuro/Psych: no motor/sensory deficits, alert, normal mood/affect, oriented x 3
[2017-05-02] MEDS: CALCIUM CARBONATE 500 MG CHEWABLE TAB PO PRN (00:37)
[2017-05-02] MEDS: IBUPROFEN 600 MG TAB PO PRN ×2 (05:35→11:49)
[2017-05-02] MEDS: IRON POLYSAC/IRON HEME 28 MG TAB PO SCH (08:37)
[2017-05-02] MEDS: SENNOSIDES/DOCUSATE SODIUM TAB PO SCH (08:37)
[2017-05-02 08:38] VITALS: BP 115/80; PULSE 75; TEMP 97.9
[2017-05-02] MEDS: HYDROCODONE/APAP 5/325 TAB PO PRN ×2 (08:40→12:53)
--- NOTE | 2017-05-02 10:37 | OBGCSDC ---
General Delivery Information - General Info : 1 Para: 1 Abortions: 0 Type: Primary L&D Analgesia/Anesthesia Type: Epidural, Spinal, Nitrous Admission Date: 04/28/17 Labs: Patient ABO/Rh A POSITIVE 04/28/17 07:45 Hct 33.6 % (38.0-47.0) L 04/30/17 05:55 - Hospital Course Antepartum: 04/28/17 14:03 concieved by IVF - male factor infertility. negative genetic testing. negative echocardiogram. initial care with [facility]. transferred to [facility] at 36 weeks. Intrapartum: 04/28/17 14:01 patient comfortable with epidural. pitocin is at 12. AROM - moderate amount of blood tinged clear fluid. status is reassuring. 04/28/17 17:13 patient is doing well. pitocin is at 18 mu. sve 4/80/-2. IUPC placed. contractions are not adequate yet. will increase pitocin to max 24. status reassuring. 04/28/17 22:18 patient has been pushing in multiple position. not moving the baby much. overall status is reassuring. having variable with pushing but moderate variability in between. 04/28/17 23:13 patient has been pushing for greater than two hours with minimal descent of the head. patient is not longer able to push for more than a few seconds at a time due to severe pain in suprapubic area. has pushed bolus several times with no relief. epidural assessed and found to be disconnected. not able to simply reconnect due to sterility. RT notified and nitrous brought to patient. pitocin off. patient given terbutaline. discussion about management options of replacing epidural and then once comfortable beginning pushing. patient does not want to do that. "I want a c section". discussed risks, benefits. because even when patient was comfortable and exerting good pushing effort the head was not descending at all we agreed to proceed with PLTCS. consent obtained. : 04/29/17 14:12 Pt is doing well this am. She is ambulating and voiding and has min lochia. Pain is well controlled with po [place] and Ibuprofen. She is working on breast feeding and baby is doing well. She is on Colace and bowel protocol. 04/30/17 15:26 05/01/17 18:30 patient is doing well. pain is well controlled working on breast feeding. normal lochia. long discussion about labor course and delivery. multiple questions answered. 05/02/17 10:33 S) Pt doing well, no complaints; desires d/c home today O) Exam: VSS, Cv: RRR, no murmur Resp: CtA-B Abd: soft, nontender, nondistended, +BSx4 Incision: C/D/I, steri strips present Uterus: firm @ U-1 Extremities: trace edema, negative joseline's A) [id number] s/p primary c/s P) d/c home today routine post op care f/u in 2 weeks 05/02/17 10:37 Vaginal - Diagnosis Amniotic Fluid Color: Clear, Bloody - Procedures Non-surgical Procedures: Amniotomy - Delivery Providers Surgeon: [facility] Nurse Practitioner: Negin Suresh Anesthesiologist: Lisa Starks - Delivery Indications for Current Section: Arrest of Descent Non-surgical Procedures: Amniotomy [place] Delivery Date: 04/29/17 Delivery Time: 00:03 OBED: 04/23/17 Gestational Age: 41 week(s) and 2 day(s) Sex of : Female Weight (gm): 3370 kg Score (1 Min): 8 Score (5 Min): 9 Discharge Information - Discharge Information Prescriptions: Hydrocodone/APAP 5/325 [[place] 5/325 (*)] 1 - 2 tab PO Q4HRS PRN #30 tab PRN Reason: Pain, Moderate Ibuprofen [Motrin (*)] 600 mg PO Q6HRS PRN #30 tab PRN Reason: post , inflammation Iron Polysacch/Iron Heme Polyp [Bifera] 28 mg PO DAILY #30 tab Sennosides/Docusate Sodium [Senokot-S] 1 - 2 tab PO BID #30 tab Condition: Good Instruction/Follow Up: See Instruction Sheet, Two Weeks
== END 2017-05-02 13:21 | disposition home or self-care (01) | DRG 766 ==
LOC: FLD 07:09 → FOB 04-29 03:00
PROVIDERS: ADMIT Obstetrics & Gynecology; ATTEND Obstetrics & Gynecology
PROC: 10907ZC Drainage of Amniotic Fluid, Therapeutic from Products of Conception, Via Natural or Artificial Opening (ICD-10-PCS; principal; 2017-04-28)
PROC: 10D00Z1 Extraction of Products of Conception, Low, Open Approach (ICD-10-PCS; principal; 2017-04-28)
PROC: 3E033VJ Introduction of Other Hormone into Peripheral Vein, Percutaneous Approach (ICD-10-PCS; principal; 2017-04-28)
DX: O48.0 Post-term pregnancy (principal); O64.0XX0 Obstructed labor due to incomplete rotation of fetal head, not applicable or unspecified; O62.2 Other uterine inertia; O69.81X0 Labor and delivery complicated by cord around neck, without compression, not applicable or unspecified; Z3A.40 40 weeks gestation of pregnancy; Z37.0 Single live birth
CPT/HCPCS: J0690; J1885; J2210; J2370; J2590; J3010; J3105